=== PATIENT | male | born 1990 | race Caucasian/White ===

== ENCOUNTER 2023-06-20 09:13 | Emergency (ER) | payer OTHER ==
[~2023-06-20] VITALS: Ht 172.7 cm; Wt 108.9 kg
[2023-06-20] MEDS ORDERED: HYDROMORPHONE INJ 2 MG/ML DISP.SYRIN ONE (10:25)
[2023-06-20] MEDS ORDERED: HYDROMORPHONE INJ 2 MG/ML DISP.SYRIN IM ONE (10:30)
[2023-06-20 11:17] VITALS: BP 113/57; TEMP 98.5; O2SAT 96
== END 2023-06-20 11:17 ==
LOC: EDSEX 10:05 → ER 10:05
DX: G89.18 Other acute postprocedural pain (principal); M79.604 Pain in right leg; Z98.890 Other specified postprocedural states
CPT/HCPCS: 99283; 96372; J1170